=== PATIENT | male | born 1955 | race Caucasian/White ===

== ENCOUNTER 2020-01-30 08:25 | Outpatient (CLI) | payer OTHER ==
[~2020-01-30 08:25] MED LIST: NABUMETONE500 MG PO; PERCOCET 5/3251 TAB PO
== END 2020-01-30 12:26 | disposition home or self-care (01) ==
LOC: NUCLEAR 08:25
PROVIDERS: ATTEND Internal Medicine Cardiovascular Disease
DX: I50.20 Unspecified systolic (congestive) heart failure (principal); R94.31 Abnormal electrocardiogram [ECG] [EKG]
CPT/HCPCS: A9500; J0153; 78452; 93017

== ENCOUNTER 2020-12-02 13:38 | Outpatient (CLI) | payer OTHER | END 2020-12-02 13:50 | disposition home or self-care (01) | LOC: SONOGRAMA 13:38 | PROVIDERS: ATTEND Urology | DX: N43.2 Other hydrocele (principal) ==

== ENCOUNTER 2021-01-14 14:22 | Emergency (ER) | payer OTHER ==
[~2021-01-14] VITALS: Ht 180.3 cm; Wt 150.6 kg
[2021-01-14] MEDS ORDERED: SYNTHROID88 MCG (14:32)
== END 2021-01-14 19:57 | disposition home or self-care (01) ==
LOC: ER 14:22
DX: B34.9 Viral infection, unspecified (principal); M54.5 Low back pain

== ENCOUNTER 2021-02-01 11:10 | Emergency (ER) | payer OTHER ==
[~2021-02-01] VITALS: Ht 180.3 cm; Wt 154.2 kg
[~2021-02-01 11:10] MED LIST changes: +SYNTHROID88 MCG
== END 2021-02-01 14:59 ==
LOC: ER 11:10
DX: R06.6 Hiccough (principal)